=== PATIENT | female | born 1950 | race Caucasian/White ===

== ENCOUNTER 2017-08-15 10:50 | Emergency (ER) | payer MEDICARE ==
[~2017-08-15] VITALS: Ht 172.7 cm; Wt 81.8 kg
[2017-08-15 11:17] VITALS: BP 121/81
[2017-08-15] MEDS ORDERED: HYDROcodone/APAP 5/325 TABLET PO ONE (12:00)
[2017-08-15] MEDS ORDERED: KETOROLAC 30 MG/1 ML IM ONE (12:00)
[2017-08-15] MEDS ORDERED: DIAZEPAM 5 MG TABLET PO ONE (12:00)
[2017-08-15] MEDS ORDERED: DIAZEPAM 5 MG TABLET ONE (12:11)
[2017-08-15] MEDS ORDERED: KETOROLAC 30 MG/1 ML ONE (12:12)
[2017-08-15] MEDS ORDERED: HYDROcodone/APAP 5/325 TABLET ONE (12:12)
== END 2017-08-15 13:28 | disposition home or self-care (01) ==
LOC: ED 13:02
DX: S39.012A Strain of muscle, fascia and tendon of lower back, initial encounter (principal); X58.XXXA Exposure to other specified factors, initial encounter; Y93.89 Activity, other specified; Y92.89 Other specified places as the place of occurrence of the external cause; Y99.8 Other external cause status
CPT/HCPCS: 72110; 93005; 96372; 99284; J1885

== ENCOUNTER 2020-07-02 07:59 | Emergency (ER) | payer MEDICARE ==
[~2020-07-02] VITALS: Ht 172.7 cm; Wt 81.1 kg
--- NOTE | 2020-07-02 08:17 | NUR ---
pt c/o diarrhea, fatigue, dehydrated, night sweat, nausea, vomitting started on 06/16. pt had 2nd covid vaccine on 06/11. hx of acid reflex. pt up to bathroom with steady gait for ua.
--- NOTE | 2020-07-02 08:24 | NUR ---
PT RECENTLY DIAGNOSED WITH UTI. UNABLE TO TAKE ANTIBIOTICS R/T N/V
--- NOTE | 2020-07-02 08:26 | NUR ---
DR. CASTRO TO BEDSIDE FOR EVALUATION. PT ATTACHED TO ALL MONITORS.ANGELA HAGEN
[2020-07-02] MEDS ORDERED: SODIUM CHLORIDE 0.9% 1,000ML IVBOLUS ONE (09:00)
[2020-07-02 09:05] LABS: MICROSCOPIC INDICATED
[2020-07-02 09:29] LABS: BASOPHILS % (AUTO) 1 % (0-1); EOSINOPHILS % (AUTO) 2 % (1-7); LYMPHOCYTES % (AUTO) 8 % (22-44); MEAN CORPUSCULAR HEMOGLOBIN 27.2 pg (27.0-34.8); MEAN CORPUSCULAR HGB CONC 32.6 g/dL (32.4-35.8); MEAN PLATELET VOLUME 7.2 fL (7.4-10.4); MONOCYTES % (AUTO) 4 % (2-9); NEUTROPHILS % (AUTO) 85 % (42-75); PLATELET COUNT 641 x10^3/uL (130-400); RED BLOOD COUNT 4.43 x10^6/uL (3.82-5.3); RED CELL DISTRIBUTION WIDTH 14.1 % (9.6-15.2)
[2020-07-02 09:39] LABS: CHLORIDE 99 mmol/L (98-107)
[2020-07-02 09:45] LABS: ALANINE AMINOTRANSFERASE 31 U/L (12-78); ALBUMIN 2.4 g/dL (3.4-5.0); ALKALINE PHOSPHATASE 152 U/L (45-117); ANION GAP 8 mmol/L (5-15); BILIRUBIN,TOTAL 0.4 mg/dL (0.2-1.0); CALCIUM 8.9 mg/dL (8.5-10.1); CREATININE 0.76 mg/dL (0.55-1.02)
[2020-07-02 09:49] LABS: MD SCAN
--- NOTE | 2020-07-02 09:58 | NUR ---
PT UP TO BATHROOM WITH STEADY GAIT. VSS, NADN
[2020-07-02] MEDS ORDERED: CEFTRIAXONE PMX 1GM/50ML 50 ML IV ONE (10:00)
[2020-07-02] MEDS ORDERED: CEFTRIAXONE PMX 1GM/50ML 50 ML ONE (10:05)
[2020-07-02 10:49] VITALS: BP 111/58
--- NOTE | 2020-07-02 10:59 | NUR ---
Patient/Caregiver given discharge instructions and they have confirmed that they understand the instructions. Patient ambulatory with steady gait.
== END 2020-07-02 11:00 | disposition home or self-care (01) ==
LOC: ED 08:43
DX: N12 Tubulo-interstitial nephritis, not specified as acute or chronic (principal); N10 Acute pyelonephritis; R00.0 Tachycardia, unspecified; E78.5 Hyperlipidemia, unspecified; M19.90 Unspecified osteoarthritis, unspecified site
CPT/HCPCS: 36415; 80053; 81001; 83690; 85025; 87040; 87086; 93005; 96361; 96365; 99284; J0696; J7030

== ENCOUNTER 2020-07-10 10:38 | Emergency (ER) | payer MEDICARE ==
[~2020-07-10] VITALS: Ht 172.7 cm; Wt 79.7 kg
--- NOTE | 2020-07-10 11:19 | NUR ---
ASSUMED CARE OF PT. KIDNEY INFECTION RECHECK HERE 07/02. NEW DOCTOR WOULDNT SEE HER TODAY, HER APPT IS THURSDAY. HAVING NIGHT SWEATS, COLD IN MORNING. WAKES UP FREQUENTLY TO VOID.
[2020-07-10] MEDS ORDERED: FAMOTIDINE 20 MG/2 ML IVPush ONE (11:30)
[2020-07-10] MEDS ORDERED: MAALOX/HYOSCYAMINE/LIDOCAINE 45 ML BTL PO ONE (11:30)
[2020-07-10] MEDS ORDERED: ONDANSETRON 2MG/ML, 2ML IVPush ONE (11:30)
[2020-07-10] MEDS ORDERED: SODIUM CHLORIDE FLUSH 10ML SYR IVF ONE (11:30)
[2020-07-10] MEDS ORDERED: SODIUM CHLORIDE 0.9% 1,000ML IVBOLUS ONE (11:30)
[2020-07-10] MEDS ORDERED: ONDA4TAB13 PO (11:32)
[2020-07-10] MEDS ORDERED: ONDANSETRON 2MG/ML, 2ML ONE (11:46)
[2020-07-10] MEDS ORDERED: MAALOX/HYOSCYAMINE/LIDOCAINE 45 ML BTL ONE (11:46)
[2020-07-10] MEDS ORDERED: FAMOTIDINE 20 MG/2 ML ONE (11:47)
[2020-07-10 11:56] LABS: MICROSCOPIC INDICATED
--- NOTE | 2020-07-10 11:58 | NUR ---
MEDICATED, COMFORTABLE.
[2020-07-10 11:59] LABS: BASOPHILS % (AUTO) 1 % (0-1); EOSINOPHILS % (AUTO) 3 % (1-7); LYMPHOCYTES % (AUTO) 10 % (22-44); MEAN CORPUSCULAR HEMOGLOBIN 27.4 pg (27.0-34.8); MEAN CORPUSCULAR HGB CONC 32.7 g/dL (32.4-35.8); MEAN PLATELET VOLUME 6.5 fL (7.4-10.4); MONOCYTES % (AUTO) 5 % (2-9); NEUTROPHILS % (AUTO) 82 % (42-75); PLATELET COUNT 621 x10^3/uL (130-400); RED BLOOD COUNT 4.38 x10^6/uL (3.82-5.3); RED CELL DISTRIBUTION WIDTH 14.3 % (9.6-15.2)
[2020-07-10 12:00] LABS: ALANINE AMINOTRANSFERASE 28 U/L (12-78); ALBUMIN 2.4 g/dL (3.4-5.0); ANION GAP 5 mmol/L (5-15); CALCIUM 8.9 mg/dL (8.5-10.1); CHLORIDE 99 mmol/L (98-107); CREATININE 0.63 mg/dL (0.55-1.02)
[2020-07-10 12:05] LABS: ALKALINE PHOSPHATASE 130 U/L (45-117); BILIRUBIN,TOTAL 0.3 mg/dL (0.2-1.0); TOTAL PROTEIN 7.1 g/dL (6.4-8.2); TROPONIN I < 0.015 ng/mL (0.000-0.045)
[2020-07-10 12:40] LABS: MD SCAN
[2020-07-10] MEDS ORDERED: OMNIPAQUE 350 MG/ML, 100ML BOTTLE ONE (13:00)
--- NOTE | 2020-07-10 13:38 | NUR ---
PT HAD BEEN UP TO VOID. REHOOKED TO VS.
--- NOTE | 2020-07-10 14:12 | NUR ---
updated pt that we are waiting for md to round
[2020-07-10 14:28] VITALS: BP 106/55
== END 2020-07-10 14:58 | disposition home or self-care (01) ==
LOC: ED 11:29
DX: K21.9 Gastro-esophageal reflux disease without esophagitis (principal); R61 Generalized hyperhidrosis; R11.0 Nausea; R63.4 Abnormal weight loss; R10.2 Pelvic and perineal pain; R30.0 Dysuria; M54.5 Low back pain; E78.5 Hyperlipidemia, unspecified; Z68.26 Body mass index [BMI] 26.0-26.9, adult; Z79.899 Other long term (current) drug therapy; Z90.710 Acquired absence of both cervix and uterus
CPT/HCPCS: 36415; 74177; 80053; 81001; 83605; 83690; 84443; 84484; 85025; 87040; 87086; 93005; 96361; 96374; 96375; 99285; J2405; J7030; Q9967